=== PATIENT | female | born 1970 ===

== ENCOUNTER 2020-11-27 18:59 | Emergency (ER) | payer OTHER ==
[2020-11-27 19:27] VITALS: BP 163/98
[2020-11-27] MEDS ORDERED: ASPIRIN 325 MG TAB PO ONE (19:29)
[2020-11-27 19:50] LABS: Basophils % (Auto) 0.6 % (0.0-1.8); Eosinophils # (Auto) 0.2 K/mm3 (0.0-0.4); Eosinophils % (Auto) 3.8 % (0.0-4.3); Hematocrit 37.1 % (30.3-42.9); Hemoglobin 12.6 gm/dl (10.1-14.3); Lymphocytes # (Auto) 1.3 K/mm3 (1.2-5.4); Lymphocytes % (Auto) 27.8 % (13.4-35.0); Mean Corpuscular HGB Conc 34 % (30-34); Mean Corpuscular Volume 92 fl (79-97); Monocytes # (Auto) 0.3 K/mm3 (0.0-0.8); Monocytes % (Auto) 6.5 % (0.0-7.3); Platelet Count 238 K/mm3 (140-440); Red Blood Count 4.03 M/mm3 (3.65-5.03); Red Cell Distribution Width 13.5 % (13.2-15.2)
--- NOTE | 2020-11-27 19:55 | XRay Report ---
XR chest routine 2V INDICATION / CLINICAL INFORMATION: Chest pain COMPARISON: None available. FINDINGS: SUPPORT DEVICES: None. HEART / MEDIASTINUM: No significant abnormality. LUNGS / PLEURA: Lungs are clear. Costophrenic sulci are sharp. No pneumothorax. ADDITIONAL FINDINGS: No significant additional findings. IMPRESSION: 1. No acute findings. Signer Name: Gerber Linn MD Signed: 11/27/2020 7:51 PM Workstation Name: [id number]
[2020-11-27 20:15] LABS: Alanine Aminotransferase 12 units/L (7-56); BUN/Creatinine Ratio 20; Blood Urea Nitrogen 16 mg/dL (7-17); Calcium 9.1 mg/dL (8.4-10.2); Hemolysis Index 46
--- NOTE | 2020-11-27 20:18 | Emergency Department Report ---
Blank Doc - Documentation Documentation: 50-year-old female with CP and SOB. Tachycardia in traige. 1- This is a initial triage assessment/medical screening only. Full assessment and work-up will be completed once the patient is in proper hospital gown, ED bed and in a private room setting. This initial assessment/diagnostic orders/clinical plan/ treatment(s) is/are subject to change based on pt's health status, clinical progression and re-assessment by fellow clinical providers in the ED. Further treatment and workup at subsequent clinical providers discretion. Patient/guardians urged not to elope from ED as their condition may be serious if not clinically assessed and managed. 2-cardiac protocol
[2020-11-27 20:39] LABS: INR 0.91 (0.87-1.13)
[2020-11-27 20:40] LABS: Partial Thromboplastin Time 29.9 Sec. (24.2-36.6)
--- NOTE | 2020-11-30 09:09 | Electrocardiograph Report ---
[facility] Test Date: 2020-11-27 Test Time: 19:30:06 Pat Name: ALEXA EPPS Department: Room: Gender: F Rn Diabetes Educator: CAROLYN : 1970 Requested By: ED DOC Order Number: [id number] Reading MD: Waqar Delaney Measurements Intervals [place] Rate: 94 P: 63 AK: 141 QRS: 26 QRSD: 77 T: 25 QT: 350 QTc: 436 Interpretive Statements Sinus rhythm Atrial premature complex No previous ECG available for comparison Electronically Signed On 11-30-2020 9:08:51 EDT by Waqar Delaney
== END 2020-11-28 01:06 | disposition left against medical advice (07) ==
LOC: ED 18:59
DX: R07.9 Chest pain, unspecified (principal); Z53.21 Procedure and treatment not carried out due to patient leaving prior to being seen by health care provider
CPT/HCPCS: 36415; 71046; 80053; 84484; 84703; 85025; 85610; 85730; 93005